=== PATIENT | female | born 1995 | race Caucasian/White ===

== ENCOUNTER 2024-04-14 08:16 | Emergency (ER) | payer BC, SELFPAY ==
[2024-04-14 08:35] VITALS: BP 123/81; PULSE 83; RESP 16; TEMP 36.3; O2SAT 100
[2024-04-14 08:37] VITALS: BP 123/81; PULSE 83; RESP 16; TEMP 36.3; O2SAT 100
--- NOTE | 2024-04-14 08:45 | ED.URI ---
HPI - URI/Sore Throat General Chief Complaint: Upper Respiratory Infection Stated Complaint: Sore Throat Time Seen by Provider: 04/14/24 08:45 Source: patient, RN notes reviewed and old records reviewed Mode of arrival: ambulatory Limitations: no limitations History of Present Illness HPI Narrative: Patient presents with complaints of sore throat that has been present since she woke up this morning. She reports that she noticed some exudates on her bilateral tonsils, right worse than left. No drooling, able to manage her own secretions. Denies any fever, chills, sweats. No ear pain. Has not taken anything for her symptoms. Voices no other concerns or complaints today Related Data Allergies Allergy/AdvReac Type Severity Reaction Status Date / Time No Known Allergies Allergy Verified 04/14/24 08:26 Review of Systems Review of Systems: All systems reviewed & are unremarkable except as noted in HPI and below Constitutional: Constitutional: Reports no additional constitutional complaints ENT: Reports system reviewed and no additional complaints, except as documented, Reports as per HPI, Denies hoarseness, Denies nasal congestion, Denies nasal discharge, Denies post nasal drip and Reports sore throat Cardiovascular: Cardiovascular: Reports no additional cardiovascular complaints Respiratory: Respiratory: Reports no additional respiratory complaints Gastrointestinal: Gastrointestinal: Reports no additional gastrointestinal complaints Musculoskeletal: Musculoskeletal: Reports no additional musculoskeletal complaints Neurologic: Denies headache(s) PMFSH Comments At the time of my signature, I reviewed and agree with the nursing past medical, surgical, social, and family history. There is no relevant family history pertinent to the patient complaint. Exam Const: General: cooperative, no acute distress, alert and awake Orientation/consciousness: oriented to person, oriented to place and oriented to time HENMT: Head: normal to inspection Ears: TM normal on the right and TM normal on the left Mouth: Yes moist mucous membranes Throat: uvula midline and abnormal tonsil bilateral erythema, exudates and hypertrophy (1+ bilaterally) Neck: Lymphatic: no lymphadenopathy noted Resp: Effort & Inspection: normal respiratory effort and able to speak in complete sentences Auscultation: clear to auscultation bilaterally, no crackles, no rales, no rhonchi and no wheezes Cardio: Palpation: normal PMI Rate: regular rate Rhythm: regular rhythm Heart sounds: S1 normal heart sound present and S2 normal heart sound present Neuro: General: oriented to person, oriented to place and oriented to time Cranial nerves: Yes CN's II-XII intact bilaterally Psych: Appearance: grossly normal Thought process: Normal thought process present Insight: Good insight present (Psych) Judgement: Good judgement present (Psych) Course Course Level of Care: Express Care Visit Vital Signs Vital signs: Vital Signs Temperature 97.3 F L 04/14/24 08:37 Pulse Rate 83 04/14/24 08:37 Respiratory Rate 16 04/14/24 08:37 Blood Pressure 123/81 04/14/24 08:37 Pulse Oximetry 100 04/14/24 08:37 Oxygen Delivery Room Air 04/14/24 08:37 Temperature 97.3 F L 04/14/24 08:37 Pulse Rate 83 04/14/24 08:37 Respiratory Rate 16 04/14/24 08:37 Blood Pressure 123/81 04/14/24 08:37 Pulse Oximetry 100 04/14/24 08:37 Oxygen Delivery Room Air 04/14/24 08:37 Reviewed MDM - URI/Sore Throat MDM Narrative Medical decision making narrative: Patient with negative strep, will send culture. Negative COVID. Symptoms just began this morning, likely negative testing due to short amount of time for symptoms to develop. She does however have a significant amount of exudate to the tonsils. Will treat as strep given this and lack of other URI symptoms. Follow with primary care provider. Emergency department for new or worse symptoms. Disc
[2024-04-14 08:53] LABS: EDSTREPNEGPOS1 Presumptive Negative
== END 2024-04-14 09:10 | disposition home or self-care (01) ==
PROVIDERS: Emergency Provider Nurse Practitioner Family
DX: J02.9 Acute pharyngitis, unspecified (principal); Z20.822 Contact with and (suspected) exposure to COVID-19
CPT/HCPCS: 87081; 87426; 87880; 99213; G0463